=== PATIENT | female | born 1955 | race Caucasian/White ===

== ENCOUNTER → 2021-03-20 | Outpatient (CLI) | payer OTHER ==
[~2021-03-20] MED LIST: ALLERGY RELIEF180 MG PO; BUSPIRONE HCL10 MG PO; FLONASE ALLER15.8 ML; HYDROXYZINE HCL25 MG PO; LINZESS145 MCG PO; LORAZEPAM1 MG PO; METOCLOPRAMIDE H5 MG PO; MONTELUKAST SOD10 MG PO; NORCO 5-325 TA1 EACH PO; PANTOPRAZOLE SO40 MG PO; ROBAXIN500 MG PO; VITAMIN B-1000 MCG/M IM; VITAMIN D350000 UNIT PO
[2021-03-21 07:10] LABS: CALCIUM, SERUM 9.6 mg/dL (8.7-10.3); CREATININE, SERUM 0.79 mg/dL (0.57-1.00); POTASSIUM, SERUM 4.8 mmol/L (3.5-5.2)
[2021-03-21 08:14] LABS: TSH 0.361 uIU/mL (0.450-4.500)
== END ==
LOC: LBRF 12:31
PROVIDERS: Nurse Practitioner Family
DX: J30.9 Allergic rhinitis, unspecified (principal); K59.09 Other constipation; F41.8 Other specified anxiety disorders; E53.8 Deficiency of other specified B group vitamins
CPT/HCPCS: 36415; 80048; 82607; 84439; 84443

== ENCOUNTER → 2021-07-13 | Outpatient (CLI) | payer OTHER | LOC: MAMO 07-06 10:00 | DX: Z12.31 Encounter for screening mammogram for malignant neoplasm of breast (principal) | CPT/HCPCS: 77063; 77067 ==